=== PATIENT | female | born 1940 | race Caucasian/White ===

== ENCOUNTER 2021-11-19 20:58 | Inpatient (IN) | payer OTHER, MEDICAID ==
[~2021-11-19] VITALS: Ht 170.2 cm; Wt 106.1 kg
[2021-11-19 21:07] VITALS: BP_SYST 161
[2021-11-19 21:59] LABS: BASOPHILS % (AUTO) 0.3 % (0.0-2.0); EOSINOPHILS # (AUTO) 0.1 K/uL (0.0-0.4); EOSINOPHILS % (AUTO) 1.5 % (0.0-4.0); HEMATOCRIT 32.1 % (36-48); HEMOGLOBIN 10.7 g/dL (12.0-16.0); LYMPHOCYTES # (AUTO) 1.4 K/uL (1.0-5.5); LYMPHOCYTES % (AUTO) 16.1 % (20.5-51.5); MEAN CORPUSCULAR HEMOGLOBIN 29 pg (27-31); MEAN CORPUSCULAR HGB CONC 33 % (32-36); MEAN CORPUSCULAR VOLUME 88 fL (79.0-98.0); MONOCYTES # (AUTO) 0.4 K/uL (0.0-1.0); MONOCYTES % (AUTO) 4.9 % (1.7-9.3); NEUTROPHILS # (AUTO) 6.9 K/uL (1.8-7.7); NEUTROPHILS % (AUTO) 77.2 % (40.0-70.0); PLATELET COUNT (AUTO) 121 K/uL (130-430); RED BLOOD CELL COUNT(AUTO) 3.66 MIL/uL (4.2-6.2)
[2021-11-19 22:41] LABS: ANION GAP 8 (5-15); CALCIUM 8.4 mg/dL (8.4-11.0); CHLORIDE 108 mmol/L (98-107); CREATININE 1.57 mg/dL (0.55-1.30); GLUCOSE 98 mg/dL (70-99); POTASSIUM 4.4 mmol/L (3.5-5.1); SODIUM SERUM 138 mmol/L (136-145); UREA NITROGEN, BLOOD 32 mg/dL (8-21)
[2021-11-19 22:45] LABS: ALANINE AMINOTRANSFERASE 16 U/L (12-78); ALBUMIN 2.9 g/dL (3.4-4.8); ASPARTATE AMINOTRANSFERASE 15 U/L (10-37); TOTAL BILIRUBIN 0.3 mg/dL (0.0-1.0)
[2021-11-19] MEDS: DOCUSATE SODIUM 100 MG CAPSULE PO SCH (23:20)
[2021-11-20 01:56] VITALS: BP_SYST 150
[2021-11-20 07:55] VITALS: BP_SYST 149
[2021-11-20] MEDS: DOCUSATE SODIUM 100 MG CAPSULE PO SCH (08:15)
[2021-11-20] MEDS ORDERED: POLYETHYLENE GLYCOL 3350, 17 GM/ POWD.PACK PO SCH ×2 (09:00→18:00)
[2021-11-20] MEDS ORDERED: NALOXONE HCL 0.4 MG/ML AMP (NARCAN) IVP PRN ×2 (10:30)
[2021-11-20] MEDS ORDERED: ONDANSETRON HCL 4 MG/2 ML VIAL IVP PRN (10:30)
[2021-11-20] MEDS ORDERED: ACETAMINOPHEN 325 MG TABLET PO PRN (10:30)
[2021-11-20] MEDS ORDERED: HYDROcodone/ACETAMIN 5-325 MG TAB (NORCO/ VICODIN) PO PRN (10:30)
[2021-11-20] MEDS ORDERED: HYDROcodone/ACETAMIN 10-325 MG TAB PO PRN (10:30)
[2021-11-20 11:14] LABS: BASOPHILS # (AUTO) 0.1 K/uL (0.0-0.2); BASOPHILS % (AUTO) 1.5 % (0.0-2.0); EOSINOPHILS # (AUTO) 0.1 K/uL (0.0-0.4); EOSINOPHILS % (AUTO) 1.3 % (0.0-4.0); HEMATOCRIT 31.7 % (36-48); HEMOGLOBIN 10.8 g/dL (12.0-16.0); LYMPHOCYTES # (AUTO) 0.8 K/uL (1.0-5.5); LYMPHOCYTES % (AUTO) 10.8 % (20.5-51.5); MEAN CORPUSCULAR HEMOGLOBIN 30 pg (27-31); MEAN CORPUSCULAR HGB CONC 34 % (32-36); MEAN CORPUSCULAR VOLUME 87 fL (79.0-98.0); MONOCYTES # (AUTO) 0.3 K/uL (0.0-1.0); MONOCYTES % (AUTO) 3.4 % (1.7-9.3); NEUTROPHILS # (AUTO) 6.2 K/uL (1.8-7.7); PLATELET COUNT (AUTO) 119 K/uL (130-430); RED BLOOD CELL COUNT(AUTO) 3.64 MIL/uL (4.2-6.2); RED CELL DISTRIBUTION WIDTH 15.8 % (9.0-15.0); WHITE BLOOD COUNT (AUTO) 7.5 K/uL (4.8-10.8)
[2021-11-20] MEDS: D5/0.45 NS 1,000 ML IV SCH ×2 (11:46→23:00)
[2021-11-20 11:51] LABS: ALANINE AMINOTRANSFERASE 16 U/L (12-78); ALBUMIN 2.8 g/dL (3.4-4.8); ANION GAP 8 (5-15); ASPARTATE AMINOTRANSFERASE 14 U/L (10-37); CHLORIDE 107 mmol/L (98-107); CREATININE 1.56 mg/dL (0.55-1.30); GLUCOSE 209 mg/dL (70-99); PHOSPHORUS 3.8 mg/dL (2.7-4.5); POTASSIUM 4.1 mmol/L (3.5-5.1); SODIUM SERUM 138 mmol/L (136-145); TOTAL BILIRUBIN 0.3 mg/dL (0.0-1.0); UREA NITROGEN, BLOOD 28 mg/dL (8-21)
[2021-11-20] MEDS ORDERED: SSNOVOLOG SUBCUT (15:14)
[2021-11-20] MEDS ORDERED: MOM PO (15:14)
[2021-11-20] MEDS ORDERED: DOCU-144 PO (15:14)
[2021-11-20] MEDS ORDERED: BISA10SU61 RC (15:14)
[2021-11-20] MEDS ORDERED: LINA290C PO (15:14)
[2021-11-20] MEDS ORDERED: VITD400 PO (15:14)
[2021-11-20] MEDS ORDERED: FERR-69 PO (15:14)
[2021-11-20] MEDS ORDERED: PRO20 PO (15:14)
[2021-11-20] MEDS ORDERED: ACET325T PO (15:14)
[2021-11-20] MEDS ORDERED: LOM2.5 PO (15:14)
[2021-11-20] MEDS ORDERED: PROC-1 PO (15:14)
[2021-11-20] MEDS ORDERED: NOR10 PO (15:14)
[2021-11-20] MEDS ORDERED: ASCO500T20 PO (15:14)
[2021-11-20] MEDS ORDERED: ALLO100T PO (15:14)
[2021-11-20] MEDS ORDERED: METF-518 PO (15:14)
[2021-11-20] MEDS ORDERED: SENN8.6T19 PO (15:14)
[2021-11-20] MEDS ORDERED: ALEN70TA3 PO (15:14)
[2021-11-20] MEDS ORDERED: ACET-73 PO (15:14)
[2021-11-20] MEDS ORDERED: ROPI2TAB29 PO (15:14)
[2021-11-20] MEDS ORDERED: OMEP20CA15 PO (15:14)
[2021-11-20] MEDS ORDERED: POLY17PO4 PO (15:14)
[2021-11-20] MEDS ORDERED: LORA10TA7 PO (15:14)
[2021-11-20] MEDS ORDERED: OXYB5TAB16 PO (15:14)
[2021-11-20] MEDS ORDERED: DIPHENOXYLATE HCL/ATROP SULF 2.5 MG TAB PO PRN (17:45)
[2021-11-20] MEDS ORDERED: MILK OF MAGNESIA 30 ML UDC PO PRN (17:45)
[2021-11-20] MEDS ORDERED: BISACODYL 10 MG/SUPPOSITORY RC PRN (17:45)
[2021-11-20] MEDS ORDERED: PROCHLORPERAZINE MALEATE 10 MG TABLET PO PRN (17:45)
[2021-11-20] MEDS ORDERED: MINERAL OIL 133 ML ENEMA RC ONE (18:00)
[2021-11-20] MEDS ORDERED: MAGNESIUM CITRATE 300 ML ORAL SOLUTION PO ONE (18:00)
[2021-11-20] MEDS ORDERED: LUBIPROSTONE 24 MCG CAPSULE PO ONE (18:15)
[2021-11-20] MEDS ORDERED: POLYETHYLENE GLYCOL 3350, 17 GM/ POWD.PACK PO ONE (18:15)
[2021-11-20] MEDS ORDERED: DOCUSATE SODIUM 100 MG CAPSULE PO ONE (18:15)
[2021-11-20] MEDS ORDERED: MINERAL OIL 30 ML UDC PO ONE (18:15)
[2021-11-20] MEDS ORDERED: SODIUM PHOSPHATE,MONO-DIBASIC 133 ML ENEMA RC ONE (18:21)
[2021-11-20 20:00] VITALS: BP_SYST 154
[2021-11-20] MEDS: MINERAL OIL 30 ML UDC PO SCH (23:00)
[2021-11-20] MEDS: SENNOSIDES 8.6 MG TABLET PO SCH (23:01)
[2021-11-21 00:37] VITALS: BP_SYST 145
[2021-11-21] MEDS: MINERAL OIL 30 ML UDC PO SCH ×6 (01:46→23:19)
[2021-11-21] MEDS: D5/0.45 NS 1,000 ML IV SCH ×3 (06:30→23:25)
[2021-11-21 06:54] LABS: BASOPHILS % (AUTO) 0.3 % (0.0-2.0); EOSINOPHILS % (AUTO) 0.4 % (0.0-4.0); HEMATOCRIT 32.6 % (36-48); HEMOGLOBIN 11.2 g/dL (12.0-16.0); LYMPHOCYTES # (AUTO) 0.6 K/uL (1.0-5.5); MEAN CORPUSCULAR HEMOGLOBIN 30 pg (27-31); MEAN CORPUSCULAR HGB CONC 34 % (32-36); MEAN CORPUSCULAR VOLUME 88 fL (79.0-98.0); MONOCYTES # (AUTO) 0.2 K/uL (0.0-1.0); MONOCYTES % (AUTO) 2.5 % (1.7-9.3); NEUTROPHILS # (AUTO) 8.9 K/uL (1.8-7.7); NEUTROPHILS % (AUTO) 90.8 % (40.0-70.0); PLATELET COUNT (AUTO) 128 K/uL (130-430); RED BLOOD CELL COUNT(AUTO) 3.72 MIL/uL (4.2-6.2); RED CELL DISTRIBUTION WIDTH 15.6 % (9.0-15.0); WHITE BLOOD COUNT (AUTO) 9.7 K/uL (4.8-10.8)
[2021-11-21 07:29] LABS: ANION GAP 9 (5-15); CALCIUM 7.9 mg/dL (8.4-11.0); CHLORIDE 107 mmol/L (98-107); CREATININE 1.32 mg/dL (0.55-1.30); GLUCOSE 158 mg/dL (70-99); PHOSPHORUS 3.5 mg/dL (2.7-4.5); POTASSIUM 4.4 mmol/L (3.5-5.1); SODIUM SERUM 140 mmol/L (136-145); UREA NITROGEN, BLOOD 24 mg/dL (8-21)
[2021-11-21 08:00] VITALS: BP_SYST 154
[2021-11-21] MEDS ORDERED: OMEPRAZOLE Non-Formulary 20 MG CAPSULE.DR PO SCH (09:00)
[2021-11-21] MEDS ORDERED: NON-FORMULARY MEDICATION (Linaclotide (Linzess) 290 MCG) PO SCH (09:00)
[2021-11-21] MEDS: OXYBUTYNIN CHLORIDE 5 MG TABLET PO SCH (09:49)
[2021-11-21] MEDS: amLODIPine BESYLATE 10 MG TABLET PO SCH (09:52)
[2021-11-21] MEDS: ASCORBIC ACID 500 MG TABLET PO SCH (09:52)
[2021-11-21] MEDS: PANTOPRAZOLE SODIUM 40 MG TAB PO SCH (09:53)
[2021-11-21] MEDS: LUBIPROSTONE 24 MCG CAPSULE PO SCH ×2 (09:53→22:03)
[2021-11-21] MEDS: CHOLECALCIFEROL (VITAMIN D-3) 400 UNIT TABLET PO SCH (09:53)
[2021-11-21] MEDS: LORATADINE 10 MG TABLET PO SCH (09:53)
[2021-11-21] MEDS: FLUoxetine HCL 20 MG CAPSULE (PROzac) PO SCH (09:53)
[2021-11-21] MEDS: ALLOPURINOL 100 MG TABLET (ZYLOPRIM) PO SCH (09:54)
[2021-11-21] MEDS: FERROUS SULFATE 325 MG TABLET.DR PO SCH (09:54)
[2021-11-21] MEDS: POLYETHYLENE GLYCOL 3350, 17 GM/ POWD.PACK PO SCH (09:54)
[2021-11-21] MEDS: DOCUSATE SODIUM 100 MG CAPSULE PO SCH ×2 (09:54→22:03)
[2021-11-21 12:00] VITALS: BP_SYST 149
[2021-11-21 16:59] VITALS: BP_SYST 148
[2021-11-21] MEDS: SENNOSIDES 8.6 MG TABLET PO SCH (22:03)
[2021-11-22 00:23] VITALS: BP_SYST 147
[2021-11-22] MEDS: MINERAL OIL 30 ML UDC PO SCH ×3 (05:54→18:00)
[2021-11-22 07:11] LABS: BASOPHILS % (AUTO) 0.4 % (0.0-2.0); EOSINOPHILS # (AUTO) 0.1 K/uL (0.0-0.4); EOSINOPHILS % (AUTO) 0.9 % (0.0-4.0); HEMATOCRIT 29.2 % (36-48); HEMOGLOBIN 10.1 g/dL (12.0-16.0); LYMPHOCYTES % (AUTO) 12.7 % (20.5-51.5); MEAN CORPUSCULAR HEMOGLOBIN 31 pg (27-31); MEAN CORPUSCULAR HGB CONC 34 % (32-36); MEAN CORPUSCULAR VOLUME 89 fL (79.0-98.0); MONOCYTES # (AUTO) 0.4 K/uL (0.0-1.0); MONOCYTES % (AUTO) 4.6 % (1.7-9.3); NEUTROPHILS # (AUTO) 6.6 K/uL (1.8-7.7); NEUTROPHILS % (AUTO) 81.4 % (40.0-70.0); PLATELET COUNT (AUTO) 122 K/uL (130-430); RED BLOOD CELL COUNT(AUTO) 3.28 MIL/uL (4.2-6.2); RED CELL DISTRIBUTION WIDTH 15.9 % (9.0-15.0); WHITE BLOOD COUNT (AUTO) 8.2 K/uL (4.8-10.8)
[2021-11-22 08:00] VITALS: BP_SYST 150
[2021-11-22 08:25] LABS: ALANINE AMINOTRANSFERASE 14 U/L (12-78); ALBUMIN 2.5 g/dL (3.4-4.8); ANION GAP 6 (5-15); ASPARTATE AMINOTRANSFERASE 15 U/L (10-37); CALCIUM 7.6 mg/dL (8.4-11.0); CHLORIDE 109 mmol/L (98-107); CREATININE 1.29 mg/dL (0.55-1.30); GLUCOSE 120 mg/dL (70-99); SODIUM SERUM 140 mmol/L (136-145); TOTAL BILIRUBIN 0.4 mg/dL (0.0-1.0); UREA NITROGEN, BLOOD 17 mg/dL (8-21)
[2021-11-22] MEDS: FERROUS SULFATE 325 MG TABLET.DR PO SCH (09:36)
[2021-11-22] MEDS: ASCORBIC ACID 500 MG TABLET PO SCH (09:37)
[2021-11-22] MEDS: CHOLECALCIFEROL (VITAMIN D-3) 400 UNIT TABLET PO SCH (09:37)
[2021-11-22] MEDS: OXYBUTYNIN CHLORIDE 5 MG TABLET PO SCH (09:37)
[2021-11-22] MEDS: FLUoxetine HCL 20 MG CAPSULE (PROzac) PO SCH (09:37)
[2021-11-22] MEDS: PANTOPRAZOLE SODIUM 40 MG TAB PO SCH (09:37)
[2021-11-22] MEDS: ALLOPURINOL 100 MG TABLET (ZYLOPRIM) PO SCH (09:38)
[2021-11-22] MEDS: LUBIPROSTONE 24 MCG CAPSULE PO SCH ×2 (09:38→21:33)
[2021-11-22] MEDS: DOCUSATE SODIUM 100 MG CAPSULE PO SCH ×2 (09:38→21:33)
[2021-11-22] MEDS: amLODIPine BESYLATE 10 MG TABLET PO SCH (09:38)
[2021-11-22] MEDS: LORATADINE 10 MG TABLET PO SCH (09:39)
[2021-11-22] MEDS: POLYETHYLENE GLYCOL 3350, 17 GM/ POWD.PACK PO SCH (09:52)
[2021-11-22 11:30] VITALS: BP_SYST 149
[2021-11-22] MEDS: D5/0.45 NS 1,000 ML IV SCH ×2 (11:59→21:33)
[2021-11-22 16:36] VITALS: BP_SYST 151
[2021-11-22] MEDS: SENNOSIDES 8.6 MG TABLET PO SCH (21:33)
[2021-11-22 21:36] VITALS: BP_SYST 145
[2021-11-23] MEDS: MINERAL OIL 30 ML UDC PO SCH ×4 (00:24→18:47)
[2021-11-23 01:20] VITALS: BP_SYST 150
[2021-11-23] MEDS: D5/0.45 NS 1,000 ML IV SCH ×2 (06:19→18:47)
[2021-11-23 07:00] LABS: BASOPHILS % (AUTO) 0.3 % (0.0-2.0); EOSINOPHILS # (AUTO) 0.1 K/uL (0.0-0.4); EOSINOPHILS % (AUTO) 1.2 % (0.0-4.0); HEMATOCRIT 29.4 % (36-48); HEMOGLOBIN 10.1 g/dL (12.0-16.0); LYMPHOCYTES # (AUTO) 1.1 K/uL (1.0-5.5); LYMPHOCYTES % (AUTO) 12.7 % (20.5-51.5); MEAN CORPUSCULAR HEMOGLOBIN 30 pg (27-31); MEAN CORPUSCULAR HGB CONC 34 % (32-36); MEAN CORPUSCULAR VOLUME 87 fL (79.0-98.0); MONOCYTES # (AUTO) 0.5 K/uL (0.0-1.0); MONOCYTES % (AUTO) 5.7 % (1.7-9.3); NEUTROPHILS # (AUTO) 6.8 K/uL (1.8-7.7); NEUTROPHILS % (AUTO) 80.1 % (40.0-70.0); PLATELET COUNT (AUTO) 126 K/uL (130-430); RED BLOOD CELL COUNT(AUTO) 3.39 MIL/uL (4.2-6.2); RED CELL DISTRIBUTION WIDTH 15.8 % (9.0-15.0); WHITE BLOOD COUNT (AUTO) 8.6 K/uL (4.8-10.8)
[2021-11-23 07:27] LABS: ANION GAP 6 (5-15); CALCIUM 7.7 mg/dL (8.4-11.0); CHLORIDE 108 mmol/L (98-107); CREATININE 1.24 mg/dL (0.55-1.30); GLUCOSE 115 mg/dL (70-99); POTASSIUM 3.7 mmol/L (3.5-5.1); SODIUM SERUM 138 mmol/L (136-145); UREA NITROGEN, BLOOD 13 mg/dL (8-21)
[2021-11-23 08:00] VITALS: BP_SYST 140
[2021-11-23] MEDS ORDERED: LUBI24CA5 PO (08:54)
[2021-11-23] MEDS ORDERED: PRO40 PO (08:54)
[2021-11-23] MEDS ORDERED: POLY17PO4 PO (08:54)
[2021-11-23] MEDS ORDERED: Mineral Oil 30 Ml Po PO (08:54)
[2021-11-23] MEDS: PANTOPRAZOLE SODIUM 40 MG TAB PO SCH (09:41)
[2021-11-23] MEDS: ASCORBIC ACID 500 MG TABLET PO SCH (09:41)
[2021-11-23] MEDS: POLYETHYLENE GLYCOL 3350, 17 GM/ POWD.PACK PO SCH (09:41)
[2021-11-23] MEDS: LUBIPROSTONE 24 MCG CAPSULE PO SCH ×2 (09:41→22:06)
[2021-11-23] MEDS: FERROUS SULFATE 325 MG TABLET.DR PO SCH (09:41)
[2021-11-23] MEDS: amLODIPine BESYLATE 10 MG TABLET PO SCH (09:42)
[2021-11-23] MEDS: LORATADINE 10 MG TABLET PO SCH (09:43)
[2021-11-23] MEDS: OXYBUTYNIN CHLORIDE 5 MG TABLET PO SCH (09:43)
[2021-11-23] MEDS: CHOLECALCIFEROL (VITAMIN D-3) 400 UNIT TABLET PO SCH (09:43)
[2021-11-23] MEDS: FLUoxetine HCL 20 MG CAPSULE (PROzac) PO SCH (09:43)
[2021-11-23] MEDS: ALLOPURINOL 100 MG TABLET (ZYLOPRIM) PO SCH (09:43)
[2021-11-23] MEDS: DOCUSATE SODIUM 100 MG CAPSULE PO SCH ×2 (09:44→22:07)
[2021-11-23 12:56] VITALS: BP_SYST 140
[2021-11-23 16:52] VITALS: BP_SYST 142
[2021-11-23 20:15] VITALS: BP_SYST 154
[2021-11-23] MEDS: SENNOSIDES 8.6 MG TABLET PO SCH (22:07)
[2021-11-24 01:36] VITALS: BP_SYST 163
[2021-11-24] MEDS: MINERAL OIL 30 ML UDC PO SCH ×3 (02:06→17:12)
[2021-11-24] MEDS: D5/0.45 NS 1,000 ML IV SCH ×2 (04:30→17:12)
[2021-11-24 06:55] LABS: BASOPHILS # (AUTO) 0.1 K/uL (0.0-0.2); BASOPHILS % (AUTO) 0.6 % (0.0-2.0); EOSINOPHILS # (AUTO) 0.1 K/uL (0.0-0.4); EOSINOPHILS % (AUTO) 0.7 % (0.0-4.0); HEMOGLOBIN 10.2 g/dL (12.0-16.0); LYMPHOCYTES # (AUTO) 0.9 K/uL (1.0-5.5); LYMPHOCYTES % (AUTO) 8.7 % (20.5-51.5); MEAN CORPUSCULAR HEMOGLOBIN 30 pg (27-31); MEAN CORPUSCULAR HGB CONC 34 % (32-36); MEAN CORPUSCULAR VOLUME 87 fL (79.0-98.0); MONOCYTES # (AUTO) 0.5 K/uL (0.0-1.0); MONOCYTES % (AUTO) 4.9 % (1.7-9.3); NEUTROPHILS # (AUTO) 8.7 K/uL (1.8-7.7); NEUTROPHILS % (AUTO) 85.1 % (40.0-70.0); PLATELET COUNT (AUTO) 118 K/uL (130-430); RED BLOOD CELL COUNT(AUTO) 3.44 MIL/uL (4.2-6.2); RED CELL DISTRIBUTION WIDTH 15.5 % (9.0-15.0); WHITE BLOOD COUNT (AUTO) 10.3 K/uL (4.8-10.8)
[2021-11-24 07:12] LABS: ANION GAP 10 (5-15); CALCIUM 8.2 mg/dL (8.4-11.0); CHLORIDE 108 mmol/L (98-107); CREATININE 1.24 mg/dL (0.55-1.30); GLUCOSE 123 mg/dL (70-99); POTASSIUM 3.9 mmol/L (3.5-5.1); SODIUM SERUM 140 mmol/L (136-145); UREA NITROGEN, BLOOD 13 mg/dL (8-21)
[2021-11-24 08:00] VITALS: BP_SYST 152
[2021-11-24] MEDS: POLYETHYLENE GLYCOL 3350, 17 GM/ POWD.PACK PO SCH (09:08)
[2021-11-24] MEDS: DOCUSATE SODIUM 100 MG CAPSULE PO SCH ×2 (09:09→20:57)
[2021-11-24] MEDS: OXYBUTYNIN CHLORIDE 5 MG TABLET PO SCH (09:09)
[2021-11-24] MEDS: PANTOPRAZOLE SODIUM 40 MG TAB PO SCH (09:09)
[2021-11-24] MEDS: ASCORBIC ACID 500 MG TABLET PO SCH (09:09)
[2021-11-24] MEDS: CHOLECALCIFEROL (VITAMIN D-3) 400 UNIT TABLET PO SCH (09:09)
[2021-11-24] MEDS: FLUoxetine HCL 20 MG CAPSULE (PROzac) PO SCH (09:09)
[2021-11-24] MEDS: LUBIPROSTONE 24 MCG CAPSULE PO SCH ×2 (09:10→20:57)
[2021-11-24] MEDS: LORATADINE 10 MG TABLET PO SCH (09:10)
[2021-11-24] MEDS: FERROUS SULFATE 325 MG TABLET.DR PO SCH (09:21)
[2021-11-24] MEDS: amLODIPine BESYLATE 10 MG TABLET PO SCH (09:21)
[2021-11-24] MEDS: ALLOPURINOL 100 MG TABLET (ZYLOPRIM) PO SCH (09:22)
[2021-11-24 12:43] VITALS: BP_SYST 156
[2021-11-24 16:53] VITALS: BP_SYST 150
[2021-11-24 20:35] VITALS: BP_SYST 164
[2021-11-24] MEDS: SENNOSIDES 8.6 MG TABLET PO SCH (20:57)
[2021-11-25 01:08] VITALS: BP_SYST 159
[2021-11-25] MEDS: D5/0.45 NS 1,000 ML IV SCH ×3 (04:44→20:30)
[2021-11-25] MEDS: MINERAL OIL 30 ML UDC PO SCH ×3 (06:00→15:05)
[2021-11-25 06:52] LABS: BASOPHILS # (AUTO) 0.1 K/uL (0.0-0.2); BASOPHILS % (AUTO) 0.5 % (0.0-2.0); EOSINOPHILS # (AUTO) 0.1 K/uL (0.0-0.4); EOSINOPHILS % (AUTO) 1.2 % (0.0-4.0); HEMATOCRIT 29.1 % (36-48); HEMOGLOBIN 10.2 g/dL (12.0-16.0); LYMPHOCYTES # (AUTO) 0.7 K/uL (1.0-5.5); LYMPHOCYTES % (AUTO) 7.6 % (20.5-51.5); MEAN CORPUSCULAR HEMOGLOBIN 30 pg (27-31); MEAN CORPUSCULAR HGB CONC 35 % (32-36); MEAN CORPUSCULAR VOLUME 87 fL (79.0-98.0); MONOCYTES # (AUTO) 0.5 K/uL (0.0-1.0); MONOCYTES % (AUTO) 5.2 % (1.7-9.3); NEUTROPHILS # (AUTO) 8.3 K/uL (1.8-7.7); NEUTROPHILS % (AUTO) 85.5 % (40.0-70.0); PLATELET COUNT (AUTO) 121 K/uL (130-430); RED BLOOD CELL COUNT(AUTO) 3.34 MIL/uL (4.2-6.2); WHITE BLOOD COUNT (AUTO) 9.8 K/uL (4.8-10.8)
[2021-11-25] MEDS ORDERED: MAGNESIUM CITRATE 300 ML ORAL SOLUTION PO ONE (08:00)
[2021-11-25 08:22] LABS: ALANINE AMINOTRANSFERASE 13 U/L (12-78); ALBUMIN 2.5 g/dL (3.4-4.8); ANION GAP 8 (5-15); ASPARTATE AMINOTRANSFERASE 16 U/L (10-37); CALCIUM 8.4 mg/dL (8.4-11.0); CHLORIDE 106 mmol/L (98-107); CREATININE 1.16 mg/dL (0.55-1.30); GLUCOSE 133 mg/dL (70-99); POTASSIUM 3.5 mmol/L (3.5-5.1); SODIUM SERUM 139 mmol/L (136-145); TOTAL BILIRUBIN 0.5 mg/dL (0.0-1.0); UREA NITROGEN, BLOOD 11 mg/dL (8-21)
[2021-11-25 08:30] VITALS: BP_SYST 160
[2021-11-25] MEDS: ASCORBIC ACID 500 MG TABLET PO SCH (10:05)
[2021-11-25] MEDS: FERROUS SULFATE 325 MG TABLET.DR PO SCH (10:05)
[2021-11-25] MEDS: LORATADINE 10 MG TABLET PO SCH (10:05)
[2021-11-25] MEDS: LUBIPROSTONE 24 MCG CAPSULE PO SCH ×2 (10:05→22:01)
[2021-11-25] MEDS: DOCUSATE SODIUM 100 MG CAPSULE PO SCH ×2 (10:05→22:00)
[2021-11-25] MEDS: OXYBUTYNIN CHLORIDE 5 MG TABLET PO SCH (10:05)
[2021-11-25] MEDS: POLYETHYLENE GLYCOL 3350, 17 GM/ POWD.PACK PO SCH (10:05)
[2021-11-25] MEDS: CHOLECALCIFEROL (VITAMIN D-3) 400 UNIT TABLET PO SCH (10:09)
[2021-11-25] MEDS: FLUoxetine HCL 20 MG CAPSULE (PROzac) PO SCH (10:12)
[2021-11-25] MEDS: PANTOPRAZOLE SODIUM 40 MG TAB PO SCH (10:12)
[2021-11-25] MEDS: ALLOPURINOL 100 MG TABLET (ZYLOPRIM) PO SCH (10:13)
[2021-11-25] MEDS: amLODIPine BESYLATE 10 MG TABLET PO SCH (10:13)
[2021-11-25 12:41] VITALS: BP_SYST 143
[2021-11-25 16:46] VITALS: BP_SYST 136
[2021-11-25 21:44] VITALS: BP_SYST 163
[2021-11-25] MEDS: SENNOSIDES 8.6 MG TABLET PO SCH (22:00)
[2021-11-26 00:35] VITALS: BP_SYST 163
[2021-11-26] MEDS: D5/0.45 NS 1,000 ML IV SCH ×2 (02:25→15:54)
[2021-11-26] MEDS: MINERAL OIL 30 ML UDC PO SCH ×3 (07:04→17:06)
[2021-11-26 08:10] VITALS: BP_SYST 162
[2021-11-26] MEDS: PANTOPRAZOLE SODIUM 40 MG TAB PO SCH (08:17)
[2021-11-26] MEDS: FLUoxetine HCL 20 MG CAPSULE (PROzac) PO SCH (08:18)
[2021-11-26] MEDS: ASCORBIC ACID 500 MG TABLET PO SCH (08:18)
[2021-11-26] MEDS: DOCUSATE SODIUM 100 MG CAPSULE PO SCH ×2 (08:18→22:52)
[2021-11-26] MEDS: FERROUS SULFATE 325 MG TABLET.DR PO SCH (08:18)
[2021-11-26] MEDS: LORATADINE 10 MG TABLET PO SCH (08:18)
[2021-11-26] MEDS: OXYBUTYNIN CHLORIDE 5 MG TABLET PO SCH (08:18)
[2021-11-26] MEDS: LUBIPROSTONE 24 MCG CAPSULE PO SCH ×2 (08:18→22:52)
[2021-11-26] MEDS: CHOLECALCIFEROL (VITAMIN D-3) 400 UNIT TABLET PO SCH (08:19)
[2021-11-26] MEDS: ALLOPURINOL 100 MG TABLET (ZYLOPRIM) PO SCH (08:19)
[2021-11-26] MEDS: amLODIPine BESYLATE 10 MG TABLET PO SCH (08:19)
[2021-11-26] MEDS: POLYETHYLENE GLYCOL 3350, 17 GM/ POWD.PACK PO SCH (08:19)
[2021-11-26 16:02] VITALS: BP_SYST 144
[2021-11-26 20:00] VITALS: BP_SYST 165
[2021-11-26] MEDS: SENNOSIDES 8.6 MG TABLET PO SCH (22:52)
[2021-11-27] MEDS: MINERAL OIL 30 ML UDC PO SCH ×5 (00:44→18:10)
[2021-11-27 01:04] VITALS: BP_SYST 66
[2021-11-27] MEDS: D5/0.45 NS 1,000 ML IV SCH ×3 (03:38→22:30)
[2021-11-27] MEDS ORDERED: ALENDRONATE SODIUM 70 MG TABLET (FOSAMAX) PO SCH (09:00)
[2021-11-27] MEDS: POLYETHYLENE GLYCOL 3350, 17 GM/ POWD.PACK PO SCH (09:31)
[2021-11-27] MEDS: amLODIPine BESYLATE 10 MG TABLET PO SCH (09:32)
[2021-11-27] MEDS: OXYBUTYNIN CHLORIDE 5 MG TABLET PO SCH (09:32)
[2021-11-27] MEDS: FLUoxetine HCL 20 MG CAPSULE (PROzac) PO SCH (09:33)
[2021-11-27] MEDS: LUBIPROSTONE 24 MCG CAPSULE PO SCH ×2 (09:33→20:58)
[2021-11-27] MEDS: FERROUS SULFATE 325 MG TABLET.DR PO SCH (09:33)
[2021-11-27] MEDS: ALLOPURINOL 100 MG TABLET (ZYLOPRIM) PO SCH (09:33)
[2021-11-27] MEDS: DOCUSATE SODIUM 100 MG CAPSULE PO SCH ×2 (09:33→20:58)
[2021-11-27] MEDS: PANTOPRAZOLE SODIUM 40 MG TAB PO SCH (09:33)
[2021-11-27] MEDS: LORATADINE 10 MG TABLET PO SCH (09:34)
[2021-11-27] MEDS: ASCORBIC ACID 500 MG TABLET PO SCH (09:34)
[2021-11-27] MEDS: CHOLECALCIFEROL (VITAMIN D-3) 400 UNIT TABLET PO SCH (09:38)
[2021-11-27 12:19] VITALS: BP_SYST 153
[2021-11-27 16:50] VITALS: BP_SYST 156
[2021-11-27] MEDS: SENNOSIDES 8.6 MG TABLET PO SCH (20:59)
[2021-11-28 01:26] VITALS: BP_SYST 183
[2021-11-28] MEDS: MINERAL OIL 30 ML UDC PO SCH ×4 (02:18→18:00)
[2021-11-28 08:09] LABS: ANION GAP 5 (5-15); CALCIUM 8.2 mg/dL (8.4-11.0); CHLORIDE 105 mmol/L (98-107); CREATININE 1.15 mg/dL (0.55-1.30); GLUCOSE 133 mg/dL (70-99); POTASSIUM 3.6 mmol/L (3.5-5.1); SODIUM SERUM 140 mmol/L (136-145); UREA NITROGEN, BLOOD 10 mg/dL (8-21)
[2021-11-28] MEDS: POLYETHYLENE GLYCOL 3350, 17 GM/ POWD.PACK PO SCH (09:00)
[2021-11-28] MEDS: LUBIPROSTONE 24 MCG CAPSULE PO SCH ×2 (09:54→21:51)
[2021-11-28] MEDS: FERROUS SULFATE 325 MG TABLET.DR PO SCH (09:54)
[2021-11-28] MEDS: ALLOPURINOL 100 MG TABLET (ZYLOPRIM) PO SCH (09:54)
[2021-11-28] MEDS: OXYBUTYNIN CHLORIDE 5 MG TABLET PO SCH (09:54)
[2021-11-28] MEDS: FLUoxetine HCL 20 MG CAPSULE (PROzac) PO SCH (09:54)
[2021-11-28] MEDS: LORATADINE 10 MG TABLET PO SCH (09:55)
[2021-11-28] MEDS: amLODIPine BESYLATE 10 MG TABLET PO SCH (09:55)
[2021-11-28] MEDS: CHOLECALCIFEROL (VITAMIN D-3) 400 UNIT TABLET PO SCH (09:55)
[2021-11-28] MEDS: PANTOPRAZOLE SODIUM 40 MG TAB PO SCH (09:56)
[2021-11-28] MEDS: DOCUSATE SODIUM 100 MG CAPSULE PO SCH ×2 (09:56→21:51)
[2021-11-28] MEDS: ASCORBIC ACID 500 MG TABLET PO SCH (09:56)
[2021-11-28 12:55] VITALS: BP_SYST 160
[2021-11-28] MEDS: D5/0.45 NS 1,000 ML IV SCH ×2 (13:44→18:23)
[2021-11-28 16:00] VITALS: BP_SYST 155
[2021-11-28 20:00] VITALS: BP_SYST 151
[2021-11-28] MEDS: SENNOSIDES 8.6 MG TABLET PO SCH (21:51)
[2021-11-29] VITALS (7 sets, daily range): BP systolic 140–159
[2021-11-29] MEDS: MINERAL OIL 30 ML UDC PO SCH ×4 (00:34→18:29)
[2021-11-29] MEDS: D5/0.45 NS 1,000 ML IV SCH ×2 (04:30→14:30)
[2021-11-29] MEDS: FERROUS SULFATE 325 MG TABLET.DR PO SCH (08:49)
[2021-11-29] MEDS: LORATADINE 10 MG TABLET PO SCH (08:49)
[2021-11-29] MEDS: PANTOPRAZOLE SODIUM 40 MG TAB PO SCH (08:50)
[2021-11-29] MEDS: LUBIPROSTONE 24 MCG CAPSULE PO SCH (08:50)
[2021-11-29] MEDS: OXYBUTYNIN CHLORIDE 5 MG TABLET PO SCH (08:51)
[2021-11-29] MEDS: DOCUSATE SODIUM 100 MG CAPSULE PO SCH (08:52)
[2021-11-29] MEDS: amLODIPine BESYLATE 10 MG TABLET PO SCH (08:52)
[2021-11-29] MEDS: ASCORBIC ACID 500 MG TABLET PO SCH (08:52)
[2021-11-29] MEDS: ALLOPURINOL 100 MG TABLET (ZYLOPRIM) PO SCH (08:52)
[2021-11-29] MEDS: FLUoxetine HCL 20 MG CAPSULE (PROzac) PO SCH (08:52)
[2021-11-29] MEDS: CHOLECALCIFEROL (VITAMIN D-3) 400 UNIT TABLET PO SCH (08:53)
[2021-11-29] MEDS: POLYETHYLENE GLYCOL 3350, 17 GM/ POWD.PACK PO SCH (08:53)
[2021-11-29] MEDS ORDERED: HYDROcodone/ACETAMIN 5-325 MG TAB (NORCO/ VICODIN) PO PRN (11:15)
[2021-11-29] MEDS ORDERED: HYDROcodone/ACETAMIN 10-325 MG TAB PO PRN (11:15)
== END 2021-11-29 20:15 | DRG 393 ==
LOC: SED 20:58 → SMU 23:16
PROVIDERS: ADMIT Preventive Medicine Preventive Medicine/Occupational Environmental Medicine; ATTEND Specialist
DX: K62.4 Stenosis of anus and rectum (principal); E43 Unspecified severe protein-calorie malnutrition; N17.0 Acute kidney failure with tubular necrosis; K56.699 Other intestinal obstruction unspecified as to partial versus complete obstruction; I12.9 Hypertensive chronic kidney disease with stage 1 through stage 4 chronic kidney disease, or unspecified chronic kidney disease; E11.22 Type 2 diabetes mellitus with diabetic chronic kidney disease; N18.31 Chronic kidney disease, stage 3a; E11.65 Type 2 diabetes mellitus with hyperglycemia; D63.1 Anemia in chronic kidney disease; D69.6 Thrombocytopenia, unspecified; E66.9 Obesity, unspecified; E83.51 Hypocalcemia; E88.09 Other disorders of plasma-protein metabolism, not elsewhere classified; F03.90 Unspecified dementia, unspecified severity, without behavioral disturbance, psychotic disturbance, mood disturbance, and anxiety; F19.10 Other psychoactive substance abuse, uncomplicated; K56.41 Fecal impaction; I35.0 Nonrheumatic aortic (valve) stenosis; E11.21 Type 2 diabetes mellitus with diabetic nephropathy; Z20.822 Contact with and (suspected) exposure to COVID-19; F32.A Depression, unspecified; Z79.899 Other long term (current) drug therapy; Z74.01 Bed confinement status; Z68.36 Body mass index [BMI] 36.0-36.9, adult
CPT/HCPCS: 36415; 74018; 76376; 76770; 80048; 80053; 83735; 84100; 85025; 87081; 97110-GP; 97530-GP; 99285; J2405; Q0164